=== PATIENT | male | born 1985 | race Caucasian/White ===

== ENCOUNTER → 2024-05-06 09:36 | Outpatient (CLI) | payer OTHER, SELFPAY ==
[2024-05-06 11:50] LABS: Cholesterol 209 mg/dL (140-199); HDL Cholesterol 71 mg/dL (40-60); LDL Cholesterol Calculated 112 mg/dL (<100); Triglycerides 128 mg/dL (35-150)
[2024-05-06 12:39] LABS: HIV 1 & 2 Ab/Ag 4th Gen Combo NEGATIVE (NEGATIVE); Hep C Virus Ab w/Reflex Quant NEGATIVE s/c (NEGATIVE)
== END ==
PROVIDERS: PCP Family Medicine; Referring Provider Family Medicine; Visit Provider Family Medicine
DX: Z13.220 Encounter for screening for lipoid disorders (principal); Z11.4 Encounter for screening for human immunodeficiency virus [HIV]; Z11.59 Encounter for screening for other viral diseases
CPT/HCPCS: 36415; 80061; 86803; 87389

== ENCOUNTER 2024-11-11 09:49 | Day surgery (SDC) | payer OTHER, SELFPAY ==
--- NOTE | 2024-11-11 | PATH_ITS ---
[facility] Accession Number: [id number] No. of containers..01 Tissue . 01 Material submitted: . colon - HEPATIC FLEXURE . 01 Diagnosis: A.COLON, HEPATIC FLEXURE: Colonic mucosa with lymphoid aggregates, otherwise unremarkable. Additional deeper levels were examined. [facility] 11/15/2024 1432 Local . 01 Electronically signed: . Campbell Matias MD, Pathologist NPI- [id number] . 01 Gross description: . Received in formalin labeled with two patient identifiers and hepatic flexure, and consists of a 1.4 x 0.1 x 0.1 cm hazel-brown elongated soft tissue which is entirely submitted in cassette A1. ([id number]) /GIL 11/13/2024 0658 Local . 01 Pathologist provided ICD-10: Z12.11, Z80.0 . 01 CPT . 536552 Specimen Comment: A courtesy copy of this report has been sent to [facility] Pathology Performed at: [address] [address], [place], [place] [id number] MD Aleksandr Grey MD Phone: [phone]
[2024-11-11 10:34] VITALS: BP 127/76; PULSE 76; RESP 16; TEMP 36.4; O2SAT 100
--- NOTE | 2024-11-11 10:55 | P.HP_ITS ---
History of Present Illness History of Present Illness Date Patient Seen: 11/11/24 Time Patient Seen: 10:55 Chief complaint: SDC Narrative: 39-year-old white male with grandfather with colon cancer, uncle with colon cancer age 49 and a brother diagnosed with polyps in his 40s. [facility] Medical History (Updated 11/11/24 @ 10:56 by Flaco Duran MD) Family history of colon cancer requiring screening colonoscopy Depression (~2015) Chicken pox Surgical History Anesthesia Broken nose (~2001) Family History Grandfather Colon cancer Hypothyroidism Uncle Colon cancer Father Melanoma Grandmother Breast cancer Grandmother Breast cancer Diabetes mellitus Mental health problem Congenital pulmonary stenosis Endometriosis Aunt Breast cancer Grandfather Heart attack Mother Hypertension Brother Colon polyps Social History marital status: number of children: 2 household members: spouse lives independently: Yes education level: college 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) leisure activities: sports Smoking Status: Never smoker alcohol intake: current substance use type: does not use Meds Home Medications and Allergies Home Medications Medication Instructions Recorded Confirmed Type sodium,potassium,mag sulfates 17.5 See Rx Instructions PO .COMPLEX 10/04/24 Rx gram-3.13 gram-1.6 gram oral soln #354 mL (Suprep Bowel Prep Kit) Allergies Allergy/AdvReac Type Severity Reaction Status Date / Time No Known Drug Allergies Allergy Verified 01/22/24 10:52 Review of Systems Review of Systems ROS: Yes All systems reviewed with the patient and are negative except as otherwise documented Exam Vital Signs (past 8 hours): - 11/11/24 10:34 Temperature 97.5 F L Pulse Rate 76 Respiratory Rate 16 Blood Pressure 127/76 Pulse Oximetry 100 Oxygen Delivery Method Room Air Oxygen Delivery Method Room Air Narrative Exam Narrative: Gen: NAD, sitting comfortably in bed, appears well HEENT: Sclera are anicteric, head is normocephalic and atraumatic, trachea is midline. CV: RRR, no JVD Resp: clear to auscultation bilaterally, equal chest wall movement bilaterally Abd: soft, nontender, normoactive bowel sounds Ext: no edema, full range of motion Neuro: Cranial nerves II-XII grossly intact, no focal deficits Skin: No erythema or ecchymosis Assessment & Plan Assessment and plan (1) Family history of colon cancer requiring screening colonoscopy: Status: Acute Assessment & Plan narrative: Patient presents for colonoscopy Risks, benefits, alternatives to colonoscopy explained, including but not limited to bowel perforation or other serious complication requiring surgery at less than 1 in 5000 colonoscopies, abdominal pain, cramping or bleeding and less than 1% of colonoscopies, and the chances that we find a diagnosis that would require further intervention of about 2%. Patient agrees to proceed. Time-Based Coding :: [TOTAL MINUTES] spent with patient and on the chart (including review of chart, obtaining history, exam, reviewing outside data, placing orders, documenting exam and treatment plan, and counseling patient) on [DATE].
--- NOTE | 2024-11-11 11:16 | PM.OP.COLON ---
Operative Date/Time/Diagnoses Date of procedure: 11/11/24 Time of procedure: 11:16 Pre-op diagnosis: Family history colon cancer Post-op diagnosis: other (Benign polyp hepatic flexure transverse colon) Procedure & Clinicians Study performed: Colonoscopy cold snare polypectomy Same procedure as scheduled: Yes Indications: Family history colon cancer Surgeon: Flaco Duran Procedure Notes SCOAP/Timeout: Performed Procedure in detail: Time-out was performed. Mac was induced. Patient was placed in left lateral decubitus position. The perineum was inspected without any gross abnormality. Lubricated pediatric colonoscope was inserted and advanced to the cecum. The terminal ileum was intubated. The colonoscope was withdrawn slowly inspecting the circumference of the colon. A small flat, likely benign hyperplastic polyp or lymphoid aggregate was noted in the hepatic flexure of the transverse colon. This was removed with cold snare polypectomy and sent for pathology. Specimen was retrieved. Very small polyps may have been missed, prep quality was adequate. Retroflexed view of the rectum showed small, non prolapsed nonbleeding internal hemorrhoids. The scope was withdrawn the patient was taken to PACU in good condition. Scope withdrawal time: 12 Sedation minutes: 15 Findings: polyp(s) Specimen(s): other (Hepatic flexure polyp Transverse colon) Complications: none Impression: Benign polyp Post-procedure Recommendations: Colonoscopy in 5 years (Next colonoscopy in 5-7 years) Follow up: as needed Disposition: PACU
[2024-11-11 11:19] VITALS: BP 96/57; PULSE 73; RESP 19; TEMP 36.7; O2SAT 95
[2024-11-11 11:24] VITALS: BP 95/56; PULSE 72; RESP 17; O2SAT 95
[2024-11-11 11:29] VITALS: BP 99/59; PULSE 70; RESP 15; O2SAT 96
[2024-11-11 11:33] VITALS: BP 98/71; PULSE 78; RESP 18; O2SAT 98
[2024-11-11 11:38] VITALS: BP 115/75; PULSE 75; RESP 14; TEMP 36.3; O2SAT 98
== END 2024-11-11 11:48 | disposition home or self-care (01) ==
PROVIDERS: PCP Family Medicine; Referring Provider Surgery; Visit Provider Surgery
PROC: 0DJD8ZZ Inspection of Lower Intestinal Tract, Via Natural or Artificial Opening Endoscopic (ICD-10-PCS; CPT 45378; principal; 2024-11-11 10:45)
DX: Z12.11 Encounter for screening for malignant neoplasm of colon (principal); Z80.0 Family history of malignant neoplasm of digestive organs; K64.8 Other hemorrhoids
CPT/HCPCS: 45385; J2704